=== PATIENT | female | born 1985 | race Caucasian/White ===

== ENCOUNTER 2016-07-26 14:27 | Outpatient (CLI) | payer BC, OTHER ==
[2016-07-26 14:49] LABS: Glucose,Whole Blood 96 mg/dL (75-99)
[2016-07-26 15:07] LABS: Basophils % (A) 0 %; CH 29.2; CHCM 33.4; Eosinophils # (A) 0.2 k/uL (0-0.7); Eosinophils % (A) 1 %; HCT 37.4 % (34.0-46.0); HGB 12.2 gm/dL (11.4-16.0); Luc # (Auto) 0.47; Luc % (Auto) 4; Lymphocytes # (A) 2.1 k/uL (1.0-4.8); Lymphocytes % (A) 16 %; MCH 28.8 pg (25.0-35.0); MCHC 32.8 g/dL (31.0-37.0); MCV 87.8 fL (80.0-100.0); Mean Platelet Volume 7.3; Monocytes # (A) 0.8 k/uL (0-1.0); Monocytes % (A) 6 %; Neutrophils # (A) 9.7 k/uL (1.3-7.7); Neutrophils % (A) 73 %; RBC 4.25 m/uL (3.80-5.40); RDW 14.2 % (11.5-15.5); WBC 13.4 k/uL (3.8-10.6); WBC (Perox) 14.56
[2016-07-26 15:14] LABS: LDH 394 U/L (313-618); Non-African American GFR(MDRD) >60 (>60 ml/min/1.73 sqM); Uric Acid 2.6 mg/dL (3.7-7.4)
[2016-07-26 15:26] LABS: Appearance,Urine Clear (Clear); Bilirubin,Urine Negative (Negative); Glucose,Urine (UA) Negative (Negative); Ketones,Urine Negative (Negative); Leukocyte Esterase,Urine Negative (Negative); Mucus,Urine Rare /hpf; Nitrite,Urine Negative (Negative); PH, Urine 5.5 (5.0-8.0); Particle Count 3139; Protein,Urine Negative (Negative); RBC,Urine <1 /hpf (0-5); Specific Gravity,Urine 1.014 (1.001-1.035); Squamous Epithelial Cell,Urine 4 /hpf (0-4); UA Billing (MACRO vs. MICRO) MICRO; Urobilinogen,Urine <2.0 mg/dL (<2.0); WBC,Urine 1 /hpf (0-5)
== END 2016-07-26 15:34 | disposition home or self-care (01) ==
LOC: FBPOP 14:27
PROVIDERS: ATTEND Obstetrics & Gynecology
DX: J02.9 Acute pharyngitis, unspecified (principal)
CPT/HCPCS: 59025; 81001; 82565; 83615; 84450; 84460; 84520; 84550; 85025; 99215

== ENCOUNTER 2016-07-31 08:00 | Inpatient (IN) | payer BC, OTHER ==
[2016-07-31 16:31] VITALS: BMI 52.1
[2016-07-31] MEDS ORDERED: LACTATED RINGERS 1,000 ML IV ONE (16:33)
[2016-07-31] MEDS ORDERED: CITRIC ACID-SODIUM CITRATE 15 ML CUP PO ONE (16:33)
[2016-07-31] MEDS ORDERED: CLINDAMYCIN 900 MG in DEXTROSE 5% IN WATER 50 ML IVPB STA ×2 (16:36)
[2016-07-31] MEDS ORDERED: LACTATED RINGERS 1,000 ML IV SCH (16:45)
[2016-07-31 16:54] LABS: Basophils % (A) 0 %; CH 29.4; CHCM 34.1; Eosinophils # (A) 0.1 k/uL (0-0.7); Eosinophils % (A) 1 %; HCT 35.9 % (34.0-46.0); HDW 2.83; Luc % (Auto) 2; Lymphocytes # (A) 1.5 k/uL (1.0-4.8); Lymphocytes % (A) 13 %; MCH 28.9 pg (25.0-35.0); MCHC 33.4 g/dL (31.0-37.0); MCV 86.5 fL (80.0-100.0); Mean Platelet Volume 8.1; Monocytes # (A) 0.9 k/uL (0-1.0); Monocytes % (A) 8 %; Neutrophils # (A) 8.6 k/uL (1.3-7.7); Neutrophils % (A) 75 %; RBC 4.15 m/uL (3.80-5.40); RDW 14.5 % (11.5-15.5); WBC 11.4 k/uL (3.8-10.6); WBC (Perox) 12.16
[2016-07-31 16:56] LABS: Glucose,Whole Blood 69 mg/dL (75-99)
[2016-07-31 17:21] LABS: Prothrombin Time 9.9 sec (9.0-12.0)
[2016-07-31 18:51] LABS: Hemoglobin A1C 5.4 % (4.2-6.1)
--- NOTE | 2016-07-31 18:52 | P.HPOB ---
History of Present Illness H&P Date: 07/31/16 Chief Complaint: Intrauterine at 37 weeks: Gestational hypertension Patient is a 30-year-old at 37 weeks gestation was seen in the office and was noted have levator blood pressure. Last week she also had elevated blood pressures labs or studies were negative however due to this finding she is diagnosed with gestational hypertension at as she is term now we'll plan for delivery. She is scheduled previously for a primary low transverse section due to prior clavicle fraction the baby and shoulder dystocia with current gestational diabetes and suspected macrosomia. Risks/benefits/ alternatives were discussed with patient in detail and all questions have been answered for the patient prior to proceeding to the operating room. Precis course has been uneventful but she did have competitions of gestational diabetes. Pertinent labs did include A+ blood type Rh antibody was negative, rubella immune, hepatitis B surface antigen and RPR were both negative. Assessment intrauterine at term and gestational hypertension with gestational diabetes. Plan primary low transverse section with bilateral partial salpingectomy for family planning Past Medical History Past Medical History: GERD/Reflux Additional Past Medical History / Comment(s): ELEV WBC., migraines History of Any Multi-Drug Resistant Organisms: None Reported Past Surgical History: Cholecystectomy Additional Past Surgical History / Comment(s): EGD, COLONOSCOPY. Past Anesthesia/Blood Transfusion Reactions: No Reported Reaction Past Psychological History: No Psychological Hx Reported Smoking Status: Current every day smoker Past Alcohol Use History: None Reported Past Drug Use History: None Reported - Past Family History Mother Family Medical History: Diabetes Mellitus Medications and Allergies Home Medications Medication Instructions Recorded Confirmed Type Multivitamin [Children's 1 tab PO DAILY 05/12/16 07/31/16 History Multivitamins] Allergies Allergy/AdvReac Type Severity Reaction Status Date / Time Penicillins Allergy Rash/Hives Verified 07/26/16 14:40 Sulfa (Sulfonamide Allergy Rash/Hives Verified 07/26/16 14:40 Antibiotics) Exam Osteopathic Statement: *. No significant issues noted on an osteopathic structural exam other than those noted in the History and Physical/Consult. - Vital Signs Vital signs: Vital Signs Temp Pulse Resp BP Pulse Ox 07/31/16 16:10 96.0 F L 128 H 17 127/78 97 Intake and Output 07/31/16 07/31/16 07/31/16 06:59 14:59 22:59 Other: Weight 125.191 kg Patient Weight 08/01/16 06:59 Weight 125.191 kg - OBG Physical Exam Breast: both: normal (no masses) Abdomen: bowel sounds normal, no diffuse tenderness, no bruit present, no guarding noted, no hepatomegaly, no splenomegaly, no mass Vulva: both: normal Vagina: normal moisture, no discharge Cervix: no lesion, no discharge Uterus: normal size, normal contour Adnexa: both: normal Anus/Rectum: normal perianal skin, no rectal mass, no hemorrhoids, heme negative Results Result Diagrams: 07/31/16 16:40 Abnormal Lab Results - Last 24 Hours (Table) 07/31/16 07/31/16 Range/Units 16:40 16:54 WBC 11.4 H (3.8-10.6) k/uL Neutrophils # 8.6 H (1.3-7.7) k/uL POC Glucose (mg/dL) 69 L (75-99) mg/dL
[2016-07-31] MEDS ORDERED: ePHEDrine 50 MG/ML 1 ML AMP ONE (19:11)
[2016-07-31] MEDS ORDERED: OXYTOCIN 10 UNIT/ML 1 ML VIAL IM ONE (19:11)
[2016-07-31] MEDS ORDERED: MORPHINE SULFATE (PF) 0.3 MG/0.3 ML SYR ONE (19:11)
[2016-07-31] MEDS ORDERED: KETOROLAC 30 MG/ML 1 ML VIAL ONE (19:11)
[2016-07-31] MEDS ORDERED: ONDANSETRON 4 MG/2 ML VIAL ONE (19:11)
--- NOTE | 2016-07-31 20:08 | P.OP ---
Date of Procedure: 07/31/16 Preoperative Diagnosis: Intrauterine at 37 weeks: Gestational diabetes: Gestational hypertension: Family planning Postoperative Diagnosis: Same Procedure(s) Performed: Primary low-transverse section with bilateral partial salpingectomy Anesthesia: spinal Surgeon: Jacques Alegria Heavy Equipment Operator #1: Kathryn Bolden Estimated Blood Loss (ml): 600 IV fluids (ml): 1,000 Urine output (ml): 100 Pathology: other (Placenta) Condition: stable Disposition: floor Operative Findings: Male scores of 8 and 9 at one and 5 minutes respectively weight was 7 lbs. 2 oz. Description of Procedure: Patient was taken to the operating room where a spinal anesthetic was found be adequate. She was prepped and draped in the normal sterile fashion and placed in dorsal supine position with leftward tilt. Initially a Pfannenstiel skin incision was made and this incision was then carried through to underlying layer of the fascia was second knife. Fascia was then nicked in the midline and this opening was extended laterally with Mullins scissors. Superior and inferior aspect of this incision were then grasped tented up and bluntly and sharply dissected off the rectus muscles. Rectus muscles were then divided in the midline and sharp dissection through the peritoneum was made. This opening was then extended superiorly and inferiorly with good visualization of both bowel bladder. Bladder blade was then placed and the vesicouterine peritoneum was identified grasped with pickups and entered sharply with Metzenbaum scissors. This opening was then extended across face of the uterus with Metzenbaum scissors and her bladder flap was digitally created. Knife was then used to incise uterus. This opening was then extended bluntly following use of hemostat opening. Once opened head was atraumatically delivered with and interim posterior shoulders were delivered with gentle downward upper traction. Mouth nares were then bulb suctioned umbilical cord was clamped cut usual fashion an nursery personnel was present to assume care. Baby was delivered from right occiput transverse position. Placenta was then delivered intact and Pitocin was added to the IV. Uterus was then exteriorized cleared of clots and debris and closed in 1 layer with 0 Vicryl suture. Once excellent hemostasis was obtained attention was turned fallopian tubes. First the right tube the left tube had a hemostat placed 3 cm from uterine cornu. Window was then created in the mesosalpinx with Bovie cautery and 2 proximal and 2 distal 2-0 silk sutures were placed intervening segment excised, and the tips were cauterized. C no bleeding from the mesosalpinx blood and debris was then suctioned from the posterior cul-de-sac. Uterus was then reinserted into the abdomen and verification of hemostasis was made. Peritoneum was then closed with 0 Vicryl suture fascial layer was closed with 0 Vicryl suture one layer of 3-0 Vicryl was placed in deep subcuticular tissues to reapproximate the skin. Skin was then closed with 3-0 Vicryl on a Seng needle. Sponge, lap, needle counts were all correct 2. Patient was taken to the recovery room in stable and satisfactory condition.
[2016-07-31] MEDS ORDERED: ACETAMINOPHEN TAB 325 MG TAB PO PRN (20:22)
[2016-07-31] MEDS ORDERED: Acetaminophen-Codeine 300-30mg TAB PO PRN ×2 (20:22)
[2016-07-31] MEDS ORDERED: diphenhydrAMINE 50 MG CAP PO PRN (20:22)
[2016-07-31] MEDS ORDERED: METOCLOPRAMIDE 5 MG/ML 2 ML VIAL IVP PRN (20:22)
[2016-07-31] MEDS ORDERED: diphenhydrAMINE 50 MG/ML 1 ML VIAL IVP PRN ×2 (20:22)
[2016-07-31] MEDS ORDERED: diphenhydrAMINE 25 MG CAP PO PRN (20:22)
[2016-07-31] MEDS ORDERED: ZOLPIDEM 5 MG TAB PO PRN (20:22)
[2016-07-31] MEDS: LACTATED RINGERS 1,000 ML IV SCH (22:18)
[2016-07-31] MEDS: OXYTOCIN 30 UNITS/500 ML NS 30 UNIT in SALINE 1 500ML.BAG IV SCH (22:19)
[2016-07-31] MEDS: SENNOSIDES-DOCUSATE SODIUM 1 EACH TAB PO SCH (22:20)
[2016-08-01] MEDS: LACTATED RINGERS 1,000 ML IV SCH ×2 (00:44→20:48)
[2016-08-01] MEDS: OXYTOCIN 30 UNITS/500 ML NS 30 UNIT in SALINE 1 500ML.BAG IV SCH (00:50)
[2016-08-01] MEDS: KETOROLAC 30 MG/ML 1 ML VIAL IVP PRN ×3 (01:35→15:38)
[2016-08-01] MEDS: CLINDAMYCIN 600 MG in DEXTROSE 5% IN WATER 50 ML IVPB SCH ×4 (05:39)
[2016-08-01] MEDS: SENNOSIDES-DOCUSATE SODIUM 1 EACH TAB PO SCH ×2 (07:56→20:53)
[2016-08-01 08:08] LABS: Basophils % (A) 0 %; CH 29.4; CHCM 33.3; Eosinophils # (A) 0.2 k/uL (0-0.7); Eosinophils % (A) 1 %; HCT 35.3 % (34.0-46.0); HDW 2.74; HGB 11.5 gm/dL (11.4-16.0); Luc # (Auto) 0.16; Luc % (Auto) 1; Lymphocytes # (A) 1.9 k/uL (1.0-4.8); Lymphocytes % (A) 17 %; MCHC 32.6 g/dL (31.0-37.0); MCV 88.8 fL (80.0-100.0); Mean Platelet Volume 8.4; Monocytes % (A) 9 %; Neutrophils % (A) 71 %; RBC 3.98 m/uL (3.80-5.40); RDW 14.6 % (11.5-15.5); WBC 11.3 k/uL (3.8-10.6); WBC (Perox) 12.27
--- NOTE | 2016-08-01 08:42 | P.PNOBGPC ---
Subjective - Subjective Principal diagnosis: Postoperative day 1 Interval history: Overall Kamila is doing very well postop day 1. She is involuting, voiding and she is tolerating a diet. She voices no points. All the questions are answered for her. Vital signs are currently stable. She is afebrile. Continue current care. Objective - Vital Signs Latest vital signs: Vital Signs Temp Pulse Resp BP Pulse Ox 08/01/16 08:00 97.8 F 87 17 100/56 08/01/16 04:00 99.3 F 83 18 93/41 97 08/01/16 00:00 98.7 F 88 18 110/69 98 07/31/16 22:02 98.1 F 82 16 110/62 98 07/31/16 21:32 81 16 104/53 98 07/31/16 21:02 84 16 106/56 98 07/31/16 20:47 96.0 F L 80 16 120/62 96 07/31/16 20:32 80 16 105/55 97 07/31/16 20:17 85 16 102/61 97 07/31/16 20:02 95.9 F L 82 16 126/58 98 07/31/16 16:10 96.0 F L 128 H 17 127/78 97 Intake and Output 07/31/16 08/01/16 08/01/16 22:59 06:59 14:59 Intake Total 800 700 Output Total 1300 350 Balance -500 350 Intake: IV 800 Oral 700 Output: Urine 100 350 Uretheral (Mahoney) 350 Emesis 0 Estimated Blood Loss 1200 Other: Voiding Method Indwelling Catheter Indwelling Catheter # Bowel Movements 0 Weight 125.191 kg - Labs Labs: Abnormal Lab Results - Last 24 Hours (Table) 07/31/16 07/31/16 08/01/16 Range/Units 16:40 16:54 07:54 WBC 11.4 H 11.3 H (3.8-10.6) k/uL Neutrophils # 8.6 H 8.0 H (1.3-7.7) k/uL POC Glucose (mg/dL) 69 L (75-99) mg/dL
--- NOTE | 2016-08-01 09:57 | P.PN ---
Progress Note - Text 0730 Anesthesia POD 1. Patient is status post section under spinal anesthesia with intra-thecal preservative free morphine 300 g. Mild pruritus, good post-op analgesia, and headache or other complications.
[2016-08-01 11:53] VITALS: RESP 16
[2016-08-01] MEDS: IBUPROFEN 600 MG TAB PO PRN (20:48)
[2016-08-02] MEDS ORDERED: guaiFENesin 600 MG TABLET.ER PO PRN (02:15)
[2016-08-02] MEDS: IBUPROFEN 600 MG TAB PO PRN (08:22)
[2016-08-02] MEDS: SENNOSIDES-DOCUSATE SODIUM 1 EACH TAB PO SCH (08:22)
[2016-08-02 08:35] VITALS: BP 126/61; PULSE 78; TEMP 97.7
--- NOTE | 2016-08-02 08:44 | P.DS ---
Providers Date of admission: 07/31/16 16:00 Expected date of discharge: 08/02/16 Attending physician: Jacques Alegria Primary care physician: Stated None Hospital Course: Patient is doing very well post op day 2. She is ambulating, voiding and she is tolerating her diet. She voices no complaints. Blood pressures of been fine. Vital signs are stable and afebrile. Heart is regular, lungs are clear, extremities without pain. Abdomen is soft uterus is firm below the umbilicus incision is clean dry and intact and lochia is reported to be light. Prescription for pain relievers has been provided she is aware to have no heavy lifting, limit stairs and driving, and pelvic rest. Should she have any high temperatures, heavy bleeding or severe pain she is to call my office. Otherwise she'll follow up with me in 1 week. She is stable for discharge this time and all questions have been answered for her at this time. Patient Condition at Discharge: Good Plan - Discharge Summary New Discharge Prescriptions: Acetaminophen-Codeine 300-30mg [Tylenol #3] 1 tab PO Q4H PRN #30 tablet PRN Reason: Pain Ibuprofen [Motrin] 600 mg PO Q6HR PRN #30 tab PRN Reason: Pain Discharge Medication List Multivitamin [Children's Multivitamins] 1 tab PO DAILY 05/12/16 [History] Acetaminophen-Codeine 300-30mg [Tylenol #3] 1 tab PO Q4H PRN #30 tablet [Rx] Ibuprofen [Motrin] 600 mg PO Q6HR PRN #30 tab 08/02/16 [Rx] Follow up Appointment(s)/Referral(s): Jacques Alegria DO [Doctor of Osteopathic Medicine] - 1 Week Activity/Diet/Wound Care/Special Instructions: Pelvic rest, no heavy lifting, limit stairs and driving. If any high temperatures, heavy bleeding, or severe pain call my office
== END 2016-08-02 10:30 | disposition home or self-care (01) | DRG 766 ==
LOC: 4FBP 16:00
PROVIDERS: ADMIT Obstetrics & Gynecology; ATTEND Obstetrics & Gynecology
PROC: 0UB70ZZ Excision of Bilateral Fallopian Tubes, Open Approach (ICD-10-PCS; 2016-07-31)
PROC: 10D00Z1 Extraction of Products of Conception, Low, Open Approach (ICD-10-PCS; principal; 2016-07-31 19:21)
DX: O13.4 Gestational [pregnancy-induced] hypertension without significant proteinuria, complicating childbirth (principal); O24.429 Gestational diabetes mellitus in childbirth, unspecified control; F17.200 Nicotine dependence, unspecified, uncomplicated; G43.909 Migraine, unspecified, not intractable, without status migrainosus; O36.63X0 Maternal care for excessive fetal growth, third trimester, not applicable or unspecified; O26.893 Other specified pregnancy related conditions, third trimester; O99.334 Smoking (tobacco) complicating childbirth; O99.62 Diseases of the digestive system complicating childbirth; K21.9 Gastro-esophageal reflux disease without esophagitis; Z37.0 Single live birth; Z3A.37 37 weeks gestation of pregnancy; Z83.3 Family history of diabetes mellitus
CPT/HCPCS: 83036; 85025; 85610; 86850; 86900; 86901; 88302; 88307

== ENCOUNTER → 2016-09-01 | Outpatient (CLI) | payer BC, OTHER ==
--- NOTE | 2016-09-01 09:10 | CT ---
EXAMINATION TYPE: CT abdomen pelvis w con DATE OF EXAM: 09/01/2016 8:18 AM COMPARISON: Prior CT abdomen pelvis 26 May 2015, 12 November 2015 HISTORY: Patient complains of painful masses bilateral to her caesarean section scar. CT DLP: 2128.5 mGycm Automated exposure control for dose reduction was used. TECHNIQUE: Helical acquisition of images was performed from the lung bases through the pelvis. CONTRAST: Performed with Oral Contrast and with IV Contrast, patient injected with 100 mL of Omnipaque 300. FINDINGS: Retroaortic renal vein is noted incidentally. LUNG BASES: No significant abnormality is appreciated. LIVER/GB: Liver shows low attenuation likely due to fatty infiltration. Liver is enlarged. Patient is post cholecystectomy. PANCREAS: Head of pancreas is mildly bulky but stable SPLEEN: No significant abnormality is seen. ADRENALS: No significant abnormality is seen. KIDNEYS: No significant abnormality is seen. RETROPERITONEAL ADENOPATHY: None visualized REPRODUCTIVE ORGANS: No significant abnormality is seen URINARY BLADDER: No significant abnormality is seen. PELVIC ADENOPATHY: None visualized. OSSEOUS STRUCTURES: No significant abnormality is seen. BOWEL: No significant abnormality is seen. OTHER: At the level of the patient's incision there is a small focus of fluid density measuring 3 cm x 1.3 cm x 2.7 cm. Small focus of air may be present. Some inflammatory changes also present to the l eft of midline without significant fluid collection. IMPRESSION: THERE MAY BE A LOCAL SEROMA OR HEMATOMA, DIFFICULT TO EXCLUDE ABSCESS AT THE LEVEL OF PATIENT'S INCIS ION. ULTRASOUND-GUIDED ASPIRATION COULD BE PERFORMED INDICATED. ADDITIONAL FINDINGS ABOVE.
== END | disposition home or self-care (01) ==
LOC: RADCTMAIN 07:25
PROVIDERS: ATTEND Surgery
DX: R10.31 Right lower quadrant pain (principal); R10.32 Left lower quadrant pain
CPT/HCPCS: 74177; Q9967

== ENCOUNTER 2016-10-20 12:08 | Day surgery (SDC) | payer BC, OTHER ==
--- NOTE | 2016-10-20 12:50 | US ---
ULTRASOUND GUIDED FNA PERCUTANEOUS SEROMA DISCONTINUED: CLINICAL HISTORY: Subcutaneous fluid collection COMPARISON: CT scan 09/01/2016 FINDINGS: Preliminary imaging demonstrated no evidence of a fluid collection for fine-needle aspiration. Proced ure discontinued. IMPRESSION: 1. No evidence of fluid collection for fine-needle aspiration..
== END 2016-10-20 12:58 | disposition home or self-care (01) ==
LOC: RADPROMAIN 12:08
PROVIDERS: ATTEND Obstetrics & Gynecology
DX: R68.89 Other general symptoms and signs (principal); Z53.8 Procedure and treatment not carried out for other reasons
CPT/HCPCS: 76536

== ENCOUNTER 2017-03-27 15:46 | Emergency (ER) | payer BC, OTHER ==
[2017-03-27] MEDS ORDERED: CYCLOBENZAPRINE 10MG STARTER 3 TAB BTL PO STA (16:57)
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
--- NOTE | 2017-03-27 18:26 | XR ---
EXAMINATION TYPE: XR lumbar spine 2 or 3V DATE OF EXAM: 03/27/2017 COMPARISON: NONE HISTORY: Back pain TECHNIQUE: 3 views FINDINGS: Vertebra have normal spacing. Sacroiliac joints are intact. There is possible bilateral L5 spondylolysis. There is no spondylolisthesis. IMPRESSION: Possible L5 spondylolysis. No compression fracture.
[2017-03-27 18:55] VITALS: BP 139/67; PULSE 78; RESP 18; TEMP 98.3
== END 2017-03-27 18:54 | disposition home or self-care (01) ==
LOC: EC 15:46
DX: S16.1XXA Strain of muscle, fascia and tendon at neck level, initial encounter (principal); S39.012A Strain of muscle, fascia and tendon of lower back, initial encounter; M47.816 Spondylosis without myelopathy or radiculopathy, lumbar region; F17.200 Nicotine dependence, unspecified, uncomplicated; Z88.0 Allergy status to penicillin; Z88.2 Allergy status to sulfonamides; V43.52XA Car driver injured in collision with other type car in traffic accident, initial encounter; Y92.410 Unspecified street and highway as the place of occurrence of the external cause
CPT/HCPCS: 72100; 72125; 99284

== ENCOUNTER → 2017-06-12 | Outpatient (CLI) | payer BC, OTHER ==
--- NOTE | 2017-06-12 13:49 | US ---
EXAMINATION TYPE: US pelvic complete DATE OF EXAM: 06/12/2017 COMPARISON: NONE CLINICAL HISTORY: R10.84 GENERALIZED ABD PAIN. RLQ pain that moves to LLQ, LMP in April, patient st gary she does not have irregular cycles but has not started for May, TECHNIQUE: TA Date of LMP: Apr, unknown day EXAM MEASUREMENTS: Uterus: 10.1 x 4.4 x 4.2 cm Endometrial Stripe: 0.9 cm Right Ovary: 2.4 x 2.3 x 2.2 cm Left Ovary: 2.9 x 2.4 x 2.4 cm 1. Uterus: Anteverted wnl 2. Endometrium: wnl 3. Right Ovary: wnl 4. Left Ovary: wnl 5. Bilateral Adnexa: wnl 6. Posterior cul-de-sac: wnl IMPRESSION: No distinct abnormality appreciated at this time.
== END | disposition home or self-care (01) ==
LOC: RADUSWWP 12:15
PROVIDERS: ATTEND Family Medicine
DX: R10.84 Generalized abdominal pain (principal); Z88.0 Allergy status to penicillin; Z88.2 Allergy status to sulfonamides
CPT/HCPCS: 76856

== ENCOUNTER 2017-08-08 21:50 | Emergency (ER) | payer BC, OTHER ==
--- NOTE | 2017-08-08 22:48 | ED ---
Chest Pain HPI - General Chief Complaint: Chest Pain Stated Complaint: left breast pain Time Seen by Provider: 08/08/17 22:28 Source: patient Mode of arrival: ambulatory Limitations: no limitations - History of Present Illness Initial Comments: This patient is a 31-year-old woman who presents to be evaluated for left breast pain and tenderness. She states that she initially noticed this while she was at work yesterday a little after noon. She states that her left breast is becomes a tender that she has resorted to putting a Band-Aid over the nipple. She has not noted any other symptoms, including no fever or chills, palpitations, no breast mass, no nipple discharge. MD Complaint: other (Left breast pain/tenderness) Onset/Timin -: days(s) Onset: during rest Pain Location: other (Left breast) Pain Radiation: none Severity: moderate Quality: other (Burning) Consistency: constant Improves With: nothing Worsens With: palpation Treatments Prior to Arrival: none - Related Data Home Medications Medication Instructions Recorded Confirmed Ibuprofen [Motrin] 800 mg PO Q8H PRN 08/08/17 08/08/17 SUMAtriptan SUCCINATE [Imitrex] 50 mg PO DAILY PRN 08/08/17 08/08/17 Topiramate 50 mg PO TID 08/08/17 08/08/17 Previous Rx's Medication Instructions Recorded Clindamycin [Cleocin] 150 mg PO Q6H #28 capsule 08/08/17 Hydrocodone/Acetaminophen [Faison 1 each PO Q6HR PRN #20 tab 08/08/17 5-325] valACYclovir HCL [Valacyclovir] 1,000 mg PO TID #21 tab 08/08/17 Lidocaine Viscous [Xylocaine 5 ml PO Q3HR PRN #100 ml 08/09/17 Viscous 2%] Allergies Allergy/AdvReac Type Severity Reaction Status Date / Time Penicillins Allergy Rash/Hives Verified 08/08/17 22:34 Sulfa (Sulfonamide Allergy Rash/Hives Verified 08/08/17 22:34 Antibiotics) Review of Systems ROS Statement: Those systems with pertinent positive or pertinent negative responses have been documented in the HPI. ROS Other: All systems not noted in ROS Statement are negative. Constitutional: Denies: fever, chills Respiratory: Denies: cough, dyspnea Cardiovascular: Denies: chest pain, palpitations Gastrointestinal: Denies: abdominal pain, nausea, vomiting, diarrhea Genitourinary: Denies: dysuria, hematuria Musculoskeletal: Denies: back pain Skin: Denies: rash Neurological: Denies: headache EKG Findings - EKG Results: EKG: interpreted by TAYLOR LATHAM, sinus rhythm (Rate approximate 91 bpm), normal axis, normal QRS, normal ST/T, no acute changes - MO, Pacemaker, Normal: Normal tracing: normal tracing Past Medical History Past Medical History: GERD/Reflux Additional Past Medical History / Comment(s): ELEV WBC., migraines History of Any Multi-Drug Resistant Organisms: None Reported Past Surgical History: Section, Cholecystectomy, Tubal Ligation Additional Past Surgical History / Comment(s): EGD, COLONOSCOPY. Past Anesthesia/Blood Transfusion Reactions: No Reported Reaction Past Psychological History: No Psychological Hx Reported Smoking Status: Current every day smoker Past Alcohol Use History: None Reported Past Drug Use History: None Reported - Past Family History Mother Family Medical History: Diabetes Mellitus General Exam Limitations: no limitations General appearance: alert, in no apparent distress, obese Head exam: Present: atraumatic, normocephalic Eye exam: Present: normal appearance. Absent: scleral icterus, conjunctival injection Respiratory exam: Present: normal lung sounds bilaterally. Absent: respiratory distress, wheezes, rales, rhonchi, stridor Cardiovascular Exam: Present: regular rate, normal rhythm, normal heart sounds, other (Exam of the patient's left breast reveals no axillary lymphadenopathy or tenderness. The patient does have slightly fibrocystic breasts, however there is no discrete palpable mass which is tender or enlarged. The patient does have moderate tenderness even to exam of the skin of the breast, and there is some mild erythema.). Absent: systolic murmur, diastolic murmur, rubs, gallop GI/Abdominal exam: Present: soft. Absent: distended, tenderness, guarding, rebound Back exam: Present: normal inspection. Absent: CVA tenderness (R), CVA tenderness (L) Neurological exam: Present: alert Skin exam: Present: warm, dry, intact, normal color. Absent: rash Course Vital Signs 08/08/17 08/08/17 21:54 23:55 Temperature 98.8 F 97.8 F Pulse Rate 116 H 70 Respiratory 20 18 Rate Blood Pressure 158/92 117/71 O2 Sat by Pulse 99 99 Oximetry Chest Pain MDM - MDM This patient is a 31-year-old woman who presents with left sided mastalgia. She is not recently . I do not find a discrete abscess. At this point the differential includes early abscess, also consider early zoster infection. I discussed appropriate follow-up and further care, and all questions answered. Disposition Clinical Impression: Mastalgia Disposition: HOME SELF-CARE Condition: Good Instructions: Mastitis (ED) Prescriptions: Clindamycin [Cleocin] 150 mg PO Q6H #28 capsule Hydrocodone/Acetaminophen [Faison 5-325] 1 each PO Q6HR PRN #20 tab PRN Reason: Pain Lidocaine Viscous [Xylocaine Viscous 2%] 5 ml PO Q3HR PRN #100 ml PRN Reason: Sore Throat valACYclovir HCL [Valacyclovir] 1,000 mg PO TID #21 tab Referrals: Leopoldo Gramajo Jr, DO [Primary Care Provider] - 1-2 days
[2017-08-08] MEDS ORDERED: LIDOCAINE VISCOUS 2% 15 ML CUP MUCOUS MEM STA (23:38)
[2017-08-08 23:56] VITALS: BP 117/71; PULSE 70; RESP 18; TEMP 97.8
== END 2017-08-09 00:17 | disposition home or self-care (01) ==
LOC: EC 21:50
DX: N64.4 Mastodynia (principal); N60.12 Diffuse cystic mastopathy of left breast; N60.11 Diffuse cystic mastopathy of right breast; L53.9 Erythematous condition, unspecified; E66.9 Obesity, unspecified; F17.200 Nicotine dependence, unspecified, uncomplicated; Z79.899 Other long term (current) drug therapy; Z88.0 Allergy status to penicillin; Z88.2 Allergy status to sulfonamides; Z86.69 Personal history of other diseases of the nervous system and sense organs; Z68.42 Body mass index [BMI] 45.0-49.9, adult
CPT/HCPCS: 93005; 99284

== ENCOUNTER → 2018-06-26 | Outpatient (CLI) | payer BC ==
--- NOTE | 2018-06-26 19:14 | CONS ---
CONSULTATION DATE OF SERVICE: 06/26/2018 A 32-year-old lady who has [facility] for snoring and excessive daytime sleepiness. HISTORY OF PRESENT ILLNESS/SLEEP-WAKE EVALUATION: SLEEP SCHEDULE: Patient usual sleep schedule basically 7 days a week from 1030 11 p.m. until 7:30/8 a.m. FALLING ASLEEP: Usually no problems with falling asleep. DURING SLEEP: She sleeps on the stomach position all on the side. She snores and has been told about episodes of stopped breathing during the sleep. Positive history of sleep talking and restless leg symptoms. DURING THE DAY/SLEEP WAKE EVALUATION: In the morning, patient wakes up tired, has difficulties paying attention. Has problems with memory, concentration, irritability, depression and anxiety. [place] Sleepiness Scale significantly increased to 14. PAST MEDICAL HISTORY: Positive for migraines. PAST SURGICAL HISTORY: Hernia repair, , cholecystectomy. MEDICATION: , Ibuprofen. SOCIAL HISTORY: Positive for smoking about half pack a day for 10 years. Alcohol consumption occasional. FAMILY HISTORY: Hypertension, snoring, headaches, diabetes, thyroid problems. REVIEW OF SYSTEMS: Occasional awakenings from sleep, sleepiness during the day. PHYSICAL EXAM: lady without distress. BP 150/80, HR 79, RR 18, height 5 foot 2 inches, weight 275.4 pounds, body mass index 50.2, temperature 97.8, oxygen saturation at room air 98%. Oropharynx: Extremely low position of soft palate wide pillars. Tonsils present. ABDOMEN: Obese. Neck Supple, no JVD. Thyroid is not palpable. LUNGS Clear to percussion and to auscultation. Good air exchange. No wheezing or rhonchi. HEART S1, S2 regular. No murmurs, gallops, or rubs. ABDOMEN: Obese. Soft and nontender. Bowel sounds are present. No organomegaly appreciated. EXTREMITIES No clubbing or cyanosis. [employer]IVE Awake, alert, and oriented X3. Cranial nerves 2 to 7 intact. There is no fasciculation or atrophy. noted. No focal deficits observed. IMPRESSION: 1. Snoring, witnessed episodes of stopped breathing during the sleep. Small oropharyngeal air space, wide neck 16.5 inches in circumference, sleepiness. [place] Sleepiness Scale increased to 14. Obstructive sleep apnea-hypopnea syndrome. 2. Obesity, body mass index 50.2. 3. Migraines. 4. Hypertension in the office today. 5. Status post hernia repair. 6. Status post . 7. Status post cholecystectomy. PLAN: 1. Polysomnography for evaluation of patient's breathing during sleep. 2. CPAP/BiPAP titration if sleep study confirms obstructive sleep apnea-hypopnea syndrome. 3. Preferable position during sleep on the side. 4. No driving if patient feels any sleepiness. 5. I will see patient for follow up visit to explain results of testing and following plan. Thank you very much for referring this patient for consultation. Sincerely, Joshua Cortez MD, PhD, FAASM Diplomat of [employer] [place] [employer] Radiographic Technologist of [facility] [place] MMODL / ISAACN: [id number] /
== END ==
LOC: SLEEP 14:16
PROVIDERS: ATTEND Internal Medicine
DX: G47.33 Obstructive sleep apnea (adult) (pediatric) (principal); E66.9 Obesity, unspecified; G43.909 Migraine, unspecified, not intractable, without status migrainosus; I10 Essential (primary) hypertension; F17.200 Nicotine dependence, unspecified, uncomplicated; Z68.43 Body mass index [BMI] 50.0-59.9, adult; Z98.890 Other specified postprocedural states; Z90.49 Acquired absence of other specified parts of digestive tract; Z99.89 Dependence on other enabling machines and devices; Z79.1 Long term (current) use of non-steroidal anti-inflammatories (NSAID)
CPT/HCPCS: 99211

== ENCOUNTER → 2020-05-28 | Outpatient (CLI) | payer BC | END | disposition home or self-care (01) | LOC: LABWHC1 14:49 | PROVIDERS: ATTEND Physician Assistant | DX: R05 Cough (principal) | CPT/HCPCS: 87502; U0003; C9803 ==

== ENCOUNTER → 2021-03-24 | Outpatient (CLI) | payer BC ==
[2021-03-24 13:42] VITALS: BP 122/76; PULSE 93; TEMP 98.4; BMI 55.0
[2021-03-24 15:08] LABS: HCT 39.9 % (34.0-46.0); HGB 13.4 gm/dL (11.4-16.0); MCH 29.5 pg (25.0-35.0); MCHC 33.5 g/dL (31.0-37.0); MCV 88.1 fL (80.0-100.0); Mean Platelet Volume 7.6; Platelet Count 332 k/uL (150-450); RBC 4.52 m/uL (3.80-5.40); RDW 13.8 % (11.5-15.5); WBC 11.1 k/uL (3.8-10.6)
--- NOTE | 2021-03-24 16:43 | P.HPBAR ---
Bariatric H&P - History & Physicial H&P Date: 03/24/21 History & Physicial: Visit/CC: initial clinic visit Patient initial contact: Initial weight: Initial weight in pounds: Height: 5 ft 1 in Initial BMI: Last weight: Current weight: 131.995 kg Current weight in pounds: 291.00 Current BMI: 55.0 [place] body weight (based on NIH guidelines): 47.627 kg Excess body weight loss: The patient is a 35 year-old F who presents for Bariatric Assessment. Patient here today for new bariatric assessment. Patient describes chronic obesity. Current BMI 55. Patient suffers from hypertension, sleep apnea, arthritis of both hips, migraines, depression. Patient has history of chronic leukocytosis. The patient does smoke 1 pack of cigarettes every 3-4 days. History of GERD symptoms in the past but that has resolved. Abdominal surgeries include laparoscopic cholecystectomy, laparoscopic abdominal wall hernia repair with mesh, . No history of DVT or dysphagia. Review of Systems The patient denies any acute changes in vision or hearing, no dysphagia or odynophagia, no chest pain or shortness of breath, no dysuria or hematuria, no headache, no runny nose, no rectal bleeding or melena, no unexplained weight loss Past Medical History Past Medical History: GERD/Reflux Additional Past Medical History / Comment(s): ELEV WBC., migraines History of Any Multi-Drug Resistant Organisms: None Reported Past Surgical History: Section, Cholecystectomy, Tubal Ligation Additional Past Surgical History / Comment(s): EGD, COLONOSCOPY. Past Anesthesia/Blood Transfusion Reactions: No Reported Reaction Smoking Status: Current every day smoker - Past Family History Mother Family Medical History: Diabetes Mellitus Surgical - Exam Vital Signs Temp Pulse BP 98.4 F 93 122/76 03/24/21 13:21 03/24/21 13:21 03/24/21 13:21 Physical exam: General: Well-developed, well-nourished HEENT: Normocephalic, sclerae nonicteric Abdomen: Nontender, nondistended Extremities: No edema Neuro: Alert and oriented Results - Labs 03/24/21 14:24 Abnormal Lab Results - Last 24 Hours (Table) 03/24/21 Range/Units 14:24 WBC 11.1 H (3.8-10.6) k/uL Bariatric Assessment & Plan (1) Morbid obesity with BMI of 50.0-59.9, adult Narrative/Plan: 35-year-old male with morbid obesity and associated comorbidities. Patient interested in sleeve gastrectomy. Risks and benefits of the procedure along with the alternative surgeries reviewed in detail. Anticipated weight loss also discussed in detail. Discussed with patient that smoking cessation will be required. She will also require preoperative EGD. This will be arranged. Status: Acute Bariatric Checklist Checklist: Plan: Checklist: EGD: 1. Hiatal hernia: 2. H. Pylori: HgbA1c: Vitamin D: Smoking: Current every day smoker Primary care physician referral: Dr. Morris Psychiatry clearance: Cardiology clearance: Sleep study: Diet journal: VTE risk score: VTE risk level: Rehab needs at discharge:
[2021-03-24 23:24] LABS: Hemoglobin A1C 5.5 % (4.0-6.0)
[2021-03-25 04:10] LABS: Albumin 4.6 g/dL (3.80-4.90); Anion Gap 8.4 mmol/L (4.00-12.00); BUN/Creat Ratio 12.22 Ratio (12.00-20.00); Calcium 9.5 mg/dL (8.7-10.3); Carbon Dioxide 24.6 mmol/L (21.6-31.8); Globulin 2.3 g/dL (1.6-3.3); Non-African American GFR(CKD) 82.8 (60.0-200.0); Potassium 4.1 mmol/L (3.5-5.5); Total Bilirubin 0.3 mg/dL (0.3-1.2); Total Protein 6.9 g/dL (6.2-8.2)
[2021-03-25 04:18] LABS: Folate, Serum 7.9 ng/mL
== END ==
LOC: BARWHC3 13:03
PROVIDERS: ATTEND Surgery
DX: E66.01 Morbid (severe) obesity due to excess calories (principal); I10 Essential (primary) hypertension; F32.9 Major depressive disorder, single episode, unspecified; M16.0 Bilateral primary osteoarthritis of hip; F17.210 Nicotine dependence, cigarettes, uncomplicated; Z68.43 Body mass index [BMI] 50.0-59.9, adult; Z88.0 Allergy status to penicillin; Z88.2 Allergy status to sulfonamides
CPT/HCPCS: 80053; 82306; 82607; 82746; 83036; 83540; 84425; 85027; 93005; 99211

== ENCOUNTER 2021-05-24 10:27 | Day surgery (SDC) | payer BC ==
[2021-05-19 15:55] VITALS: BMI 53.0
[~2021-05-24 10:27] MED LIST: LACTATED RINGERS 1,000 ML IV SCH
[2021-05-24 10:47] VITALS: TEMP 97.8
[2021-05-24] MEDS ORDERED: LACTATED RINGERS 1,000 ML IV ONE (10:48)
[2021-05-24] MEDS ORDERED: LIDOCAINE 1% INJ 10MG/ML (20 ML MDV) ONE (12:28)
[2021-05-24] MEDS ORDERED: fentaNYL (PF) 50 MCG/ML 2 ML AMP ONE (12:28)
[2021-05-24] MEDS ORDERED: MIDAZOLAM 2 MG/2 ML VIAL ONE (12:28)
[2021-05-24] MEDS ORDERED: PROPOFOL 10 MG/ML 20 ML VIAL IV ONE (12:28)
--- NOTE | 2021-05-24 12:35 | P.GSHP ---
History of Present Illness H&P Date: 05/24/21 Chief Complaint: GERD Patient here today for upper endoscopy. History of mild reflux. Evaluated for bariatric surgery. No abdominal pain. Past Medical History Past Medical History: Hypertension Additional Past Medical History / Comment(s): ., migraines, BARIATRIC EVAL. NOT TAKING MEDS FOR HTN AT THIS TIME History of Any Multi-Drug Resistant Organisms: None Reported Past Surgical History: Section, Cholecystectomy, Hernia Repair, Tubal Ligation Additional Past Surgical History / Comment(s): EGD, COLONOSCOPY. Past Anesthesia/Blood Transfusion Reactions: No Reported Reaction Smoking Status: Current every day smoker - Past Family History Mother Family Medical History: Diabetes Mellitus Medications and Allergies Home Medications Medication Instructions Recorded Confirmed Type Ergocalciferol [Vitamin D2 (1250 50,000 unit PO WEEKLY 03/31/21 05/24/21 History Mcg = 84123 Iu)] Ibuprofen [Motrin] 800 mg PO Q8H 05/24/21 05/24/21 History Venlafaxine HCl [Effexor] 50 mg PO BID 05/24/21 05/24/21 History Allergies Allergy/AdvReac Type Severity Reaction Status Date / Time Penicillins Allergy Rash/Hives Verified 05/19/21 15:44 Sulfa (Sulfonamide Allergy Rash/Hives Verified 05/19/21 15:44 Antibiotics) topiramate [From Topamax] AdvReac Nausea Verified 05/19/21 15:44 Surgical - Exam Vital Signs Temp Pulse Resp BP Pulse Ox 97.8 F 78 18 180/91 98 05/24/21 10:46 05/24/21 10:46 05/24/21 10:46 05/24/21 10:46 05/24/21 10:46 Physical exam: General: Well-developed, well-nourished HEENT: Normocephalic, sclerae nonicteric Abdomen: Nontender, nondistended Extremities: No edema Neuro: Alert and oriented Assessment and Plan (1) GERD (gastroesophageal reflux disease) Narrative/Plan: Will proceed with upper endoscopy Current Visit: Yes Status: Acute Code(s): K21.9 - GASTRO-ESOPHAGEAL REFLUX DISEASE WITHOUT ESOPHAGITIS SNOMED Code(s): 123521014
--- NOTE | 2021-05-24 12:43 | P.PCN ---
Date of Procedure: 05/24/21 Procedure(s) Performed: Preoperative Dx: GERD, presurgical Postoperative Dx: Gastritis with small erosions Procedure: EGD with Bx Anesthesia: Sedation Endoscopist: Dr. Quevedo Specimens: Antrum Endoscopic Procedure: The patient was on the endoscopy table in the left decubitus position. The Olympus gastroscope was inserted into the oropharynx and passed under direct visualization to the region of the third portion of the duodenum. From that point the scope was slowly withdrawn inspecting all surfaces carefully. There were no neoplastic inflammatory or polypoid lesions throughout the duodenum. The pylorus was widely patent. The stomach was carefully inspected. There was gastritis with a few small erosions present. A biopsy of the antrum took place to rule out H. pylori. Retroflexion revealed a normal hiatus. The esophagus was then carefully examined. There were no neoplastic inflammatory or polypoid lesions throughout the visualized esophagus. The patient was then taken to the recovery room in stable condition per anesthesia guidelines. Recommendations: Resume diet. Await biopsy results. Begin antiacids. Follow- up bariatric center.
[2021-05-24 13:14] VITALS: BP 130/83; PULSE 80; RESP 18
== END 2021-05-24 13:39 | disposition home or self-care (01) ==
LOC: ORWHC2ENDO 10:27
PROVIDERS: ATTEND Surgery
DX: K29.50 Unspecified chronic gastritis without bleeding (principal); K25.9 Gastric ulcer, unspecified as acute or chronic, without hemorrhage or perforation; K21.9 Gastro-esophageal reflux disease without esophagitis; I10 Essential (primary) hypertension; G43.909 Migraine, unspecified, not intractable, without status migrainosus; G47.33 Obstructive sleep apnea (adult) (pediatric); E66.01 Morbid (severe) obesity due to excess calories; Z68.43 Body mass index [BMI] 50.0-59.9, adult; F17.200 Nicotine dependence, unspecified, uncomplicated; Z98.891 History of uterine scar from previous surgery; Z90.49 Acquired absence of other specified parts of digestive tract; Z98.51 Tubal ligation status; Z98.890 Other specified postprocedural states; Z83.3 Family history of diabetes mellitus; Z79.1 Long term (current) use of non-steroidal anti-inflammatories (NSAID); Z79.899 Other long term (current) drug therapy; Z88.0 Allergy status to penicillin; Z88.2 Allergy status to sulfonamides; Z88.8 Allergy status to other drugs, medicaments and biological substances
CPT/HCPCS: 88305; 84703; 43239; J2250; J2001; J3010; J2704

== ENCOUNTER → 2021-06-07 | Outpatient (CLI) | payer BC ==
[2021-06-07 16:37] VITALS: BP 155/88; PULSE 102; RESP 18; TEMP 98.3; BMI 55.5
--- NOTE | 2021-06-07 17:22 | P.BASOAP ---
Subjective Progress Note Date: 06/07/21 Principal diagnosis: Morbid obesity patient returns after recent EGD. Remains interested in sleeve gastrectomy. EGD showed gastritis with small erosions. Prescription for omeprazole was provided. She has not picked up her prescription. Patient still smoking a few cigarettes per day. Patient with comorbidities including hypertension sleep apnea arthritis migraines depression.BMI 55. Objective - Vital Signs Vital signs: Vital Signs Temp 98.3 F 06/07/21 16:34 Pulse 102 H 06/07/21 16:34 Resp 18 06/07/21 16:34 BP 155/88 06/07/21 16:34 Pulse Ox Intake & Output 06/06/21 06/07/21 06/07/21 18:59 06:59 18:59 Weight 133.265 kg - Exam Abdomen: Soft, nontender, nondistended Assessment/Plan (1) Morbid obesity with BMI of 50.0-59.9, adult Narrative/Plan: 35-year-old female remains interested in sleeve gastrectomy. Surgical consent form reviewed in detail. All questions answered. Patient still smoking unfortunately. We'll have patient return in 1 month after discontinuation of tobacco. Will check urine nicotine at that time. We'll schedule sleeve gastrectomy following that. The risks of bleeding, infection, stenosis, stricture, leak, abscess, fistula formation, peritonitis, poor weight loss, reflux, vomiting, conversion to an open procedure, aborting sleeve gastrectomy, CA, PE, DVT, and were discussed. The patient understands and wishes to proceed. Plan: Date: 06/07/21 Initial Weight: Initial BMI: Current Weight: 133.265 kg Current BMI: 55.5 Type of Surgery: Total Volume in Band: Previous Volume: Volume Removed: Volume Added: Band Size:
== END ==
LOC: BARWHC3 15:27
PROVIDERS: ATTEND Surgery
DX: E66.01 Morbid (severe) obesity due to excess calories (principal); F17.210 Nicotine dependence, cigarettes, uncomplicated; I10 Essential (primary) hypertension; F32.A Depression, unspecified; G43.909 Migraine, unspecified, not intractable, without status migrainosus; Z68.43 Body mass index [BMI] 50.0-59.9, adult; Z88.0 Allergy status to penicillin; Z88.2 Allergy status to sulfonamides
CPT/HCPCS: 99211

== ENCOUNTER → 2021-08-22 | Outpatient (CLI) | payer BC ==
[2021-08-22 11:11] VITALS: BMI 55.9
== END ==
LOC: BARWHC3 08:38
PROVIDERS: ATTEND Surgery
DX: E66.01 Morbid (severe) obesity due to excess calories (principal); Z71.3 Dietary counseling and surveillance; F17.200 Nicotine dependence, unspecified, uncomplicated; Z88.0 Allergy status to penicillin; Z88.2 Allergy status to sulfonamides; Z88.8 Allergy status to other drugs, medicaments and biological substances; Z68.43 Body mass index [BMI] 50.0-59.9, adult
CPT/HCPCS: 97804

== ENCOUNTER → 2021-11-08 | Outpatient (CLI) | payer BC ==
[2021-11-08 14:14] LABS: Basophils # (A) 0.07 X 10*3/uL (0.00-0.10); Basophils % (A) 0.6 %; Eosinophils % (A) 1.8 %; HCT 40.9 % (37.2-46.3); Immature Grans, Automated 0.3 %; Lymphocytes # (A) 2.52 X 10*3/uL (0.90-5.00); Lymphocytes % (A) 23.2 %; MCH 27.1 pg (27.0-32.0); MCHC 31.8 g/dL (32.0-37.0); MCV 85.2 fL (80.0-97.0); Mean Platelet Volume 10.2 fL (9.5-12.2); Monocytes # (A) 0.76 X 10*3/uL (0.20-1.00); NRBC Per 100 WBC 0 /100 WBCS (0.0-0.0); Neutrophils % (A) 67.1 %; Platelet Count 328 X 10*3/uL (140-440); RDW 13.7 % (11.5-14.5); WBC 10.88 X 10*3/uL (4.50-10.00)
[2021-11-08 14:39] LABS: African American GFR (CKD) 110.7 (60.0-200.0); Albumin 4.3 g/dL (3.8-4.9); Albumin/Globulin Ratio 1.54 (1.60-3.17); Anion Gap 10.9 mmol/L (10.00-18.00); Calcium 9.3 mg/dL (8.7-10.3); Carbon Dioxide 25.1 mmol/L (20.0-27.5); Globulin 2.8 g/dL (1.6-3.3); Non-African American GFR(CKD) 95.5 (60.0-200.0); Potassium 4.8 mmol/L (3.5-5.5); Total Bilirubin 0.3 mg/dL (0.30-1.20); Total Protein 7.1 g/dL (6.2-8.2)
== END | disposition home or self-care (01) ==
LOC: LABPAT 08:42
PROVIDERS: ATTEND Surgery
DX: Z01.812 Encounter for preprocedural laboratory examination (principal)
CPT/HCPCS: 36415; 80053; 85025

== ENCOUNTER → 2021-11-18 | Outpatient (CLI) | payer BC ==
[2021-11-18 11:10] VITALS: BP 130/86; PULSE 112; TEMP 98.7; BMI 55.3
== END ==
LOC: BARWHC3 10:34
PROVIDERS: ATTEND Surgery
DX: Z09 Encounter for follow-up examination after completed treatment for conditions other than malignant neoplasm (principal); Z98.84 Bariatric surgery status; Z88.0 Allergy status to penicillin; Z88.2 Allergy status to sulfonamides; Z88.8 Allergy status to other drugs, medicaments and biological substances
CPT/HCPCS: 99211

== ENCOUNTER → 2021-11-24 | Outpatient (CLI) | payer BC ==
[2021-11-24 13:09] VITALS: BP 112/78; PULSE 113; TEMP 98
--- NOTE | 2021-11-24 13:11 | P.BASOAP ---
Subjective Progress Note Date: 11/24/21 Principal diagnosis: Morbid obesity Patient returns after recent sleeve gastrectomy last week. Doing well at this time. Complaining of mild discomfort at the incision sites. She is having some itching at each of the incision sites as well. No fevers. Tolerating liquids with approximate 16 ounces per day. Good protein intake. Denies heartburn. She has had some loose stools although that's improving. She has lost 10 pounds since her last visit. Objective - Vital Signs Vital signs: Vital Signs Temp 98 F 11/24/21 13:06 Pulse 113 H 11/24/21 13:06 Resp BP 112/78 11/24/21 13:06 Pulse Ox Intake & Output 11/23/21 11/24/21 11/24/21 18:59 06:59 18:59 Weight 128.367 kg - Exam Abdomen: Soft, nondistended, incisions with mild induration and erythema around each site consistent with ALLERGIC rash, minimal tenderness Assessment/Plan (1) Morbid obesity with BMI of 50.0-59.9, adult Narrative/Plan: 35-year-old female doing well after sleeve gastrectomy. Continue liquid diet. Gradually resume normal activities. Continue antiacid therapy. We'll start to use oral ventral and steroid cream on the incision sites. Return visit 2-3 weeks. Plan: Date: 11/24/21 Initial Weight: Initial BMI: Current Weight: 128.367 kg Current BMI: 0.5 Type of Surgery: Total Volume in Band: Previous Volume: Volume Removed: Volume Added: Band Size:
== END ==
LOC: BARWHC3 12:44
PROVIDERS: ATTEND Surgery
DX: E66.01 Morbid (severe) obesity due to excess calories (principal); Z68.43 Body mass index [BMI] 50.0-59.9, adult; Z98.84 Bariatric surgery status; Z88.0 Allergy status to penicillin; Z88.2 Allergy status to sulfonamides; Z88.8 Allergy status to other drugs, medicaments and biological substances; F17.200 Nicotine dependence, unspecified, uncomplicated
CPT/HCPCS: 99211

== ENCOUNTER → 2021-12-20 | Outpatient (CLI) | payer BC, OTHER ==
[2021-12-20 11:18] VITALS: BP 122/87; PULSE 78; RESP 16; TEMP 98.3; BMI 50.8
--- NOTE | 2021-12-20 11:36 | P.BASOAP ---
Subjective Progress Note Date: 12/20/21 Principal diagnosis: Morbid obesity Patient doing well today. She is 5 weeks post sleeve gastrectomy. The itching and rash around her incision sites resolved after the use of topical steroid cream. She has some nausea but no vomiting. She has lost 14 pounds since her last visit. She is back to work. Denies heartburn. Taking omeprazole daily. Objective - Vital Signs Vital signs: Vital Signs Temp 98.3 F 12/20/21 11:13 Pulse 78 12/20/21 11:13 Resp 16 12/20/21 11:13 BP 122/87 12/20/21 11:13 Pulse Ox FiO2 Intake & Output 12/19/21 12/20/21 12/20/21 18:59 06:59 18:59 Weight 122.016 kg - Exam Abdomen: Soft, nondistended, incisions clean and dry Assessment/Plan (1) Morbid obesity with BMI of 50.0-59.9, adult Narrative/Plan: Patient doing well today. Continue gradual dietary advancement. Increase exercise at this time. Check one month labs. Continue antiacids. Follow up one month. Plan: Date: 12/20/21 Initial Weight: 134.263 kg Initial BMI: 55.9 Current Weight: 122.016 kg Current BMI: 50.8 Type of Surgery: Vertical Sleeve Gastrectomy Total Volume in Band: Previous Volume: Volume Removed: Volume Added: Band Size:
[2021-12-20 18:34] LABS: HCT 43.2 % (37.2-46.3); HGB 13.2 g/dL (12.0-15.0); MCH 26.8 pg (27.0-32.0); MCHC 30.6 g/dL (32.0-37.0); MCV 87.6 fL (80.0-97.0); NRBC Per 100 WBC 0 /100 WBCS (0.0-0.0); Platelet Count 247 X 10*3/uL (140-440); RBC 4.93 X 10*6/uL (4.10-5.20); RDW 14.9 % (11.5-14.5); WBC 9.43 X 10*3/uL (4.50-10.00)
[2021-12-20 22:13] LABS: ALT 21 U/L (8-44); AST 17 U/L (13-35); African American GFR (CKD) 118.5 (60.0-200.0); Albumin 4.2 g/dL (3.8-4.9); Albumin/Globulin Ratio 1.75 (1.60-3.17); Alkaline Phosphatase 80 U/L (41-126); BUN/Creat Ratio 14.49 Ratio (12.00-20.00); Blood Urea Nitrogen 10.9 mg/dL (9.0-27.0); Calcium 9.5 mg/dL (8.7-10.3); Carbon Dioxide 25.2 mmol/L (20.0-27.5); Chloride 106 mmol/L (96-109); Globulin 2.4 g/dL (1.6-3.3); Glucose 82 mg/dL (70-110); Iron 31 ug/dL (50-170); Non-African American GFR(CKD) 102.2 (60.0-200.0); Potassium 4.4 mmol/L (3.5-5.5); Sodium 141 mmol/L (135-145); Total Bilirubin <0.15 mg/dL (0.30-1.20); Total Protein 6.6 g/dL (6.2-8.2)
== END ==
LOC: BARWHC3 10:58
PROVIDERS: ATTEND Surgery
DX: E66.01 Morbid (severe) obesity due to excess calories (principal); Z71.3 Dietary counseling and surveillance; Z98.84 Bariatric surgery status; F17.200 Nicotine dependence, unspecified, uncomplicated; Z68.43 Body mass index [BMI] 50.0-59.9, adult; Z88.0 Allergy status to penicillin; Z88.2 Allergy status to sulfonamides; Z88.8 Allergy status to other drugs, medicaments and biological substances
CPT/HCPCS: 80053; 82306; 82607; 82746; 83540; 84425; 85027; 97803; 99211

== ENCOUNTER → 2022-01-17 | Outpatient (CLI) | payer OTHER ==
[2022-01-17 13:15] VITALS: BP 141/81; PULSE 75; RESP 16; TEMP 98; BMI 48.2
--- NOTE | 2022-01-17 14:02 | P.BASOAP ---
Subjective Progress Note Date: 01/17/22 Principal diagnosis: Morbid obesity Patient returns for reevaluation. Last seen 12/20. Had 1 month labs drawn. Iron was low at 31 and vitamin D was low at 20. She only recently started taking her vitamin D. States that she takes her children's daily vitamins rather than adult dosed vitamins. No rectal bleeding or melena. No change in bowel habits. She has lost 14 pounds since last visit. Only has issues that she swallows too large of an amount at one time. No vomiting. No heartburn. Remains on antiacids. Objective - Vital Signs Vital signs: Vital Signs Temp 98 F 01/17/22 13:12 Pulse 75 01/17/22 13:12 Resp 16 01/17/22 13:12 BP 141/81 01/17/22 13:12 Pulse Ox FiO2 Intake & Output 01/16/22 01/17/22 01/17/22 18:59 06:59 18:59 Weight 115.666 kg - Exam Abdomen: Soft, nontender, nondistended Assessment/Plan (1) Morbid obesity with BMI of 50.0-59.9, adult Narrative/Plan: Patient doing well postoperative. We'll begin iron and vitamin D supplementation at this time. Switch over to adult MVI. Continue antiacid therapy. Recheck 4-6 weeks. Check three-month labs at that time. Plan: Date: 01/17/22 Initial Weight: 134.263 kg Initial BMI: 55.9 Current Weight: 115.666 kg Current BMI: 48.2 Type of Surgery: Vertical Sleeve Gastrectomy Total Volume in Band: Previous Volume: Volume Removed: Volume Added: Band Size:
== END ==
LOC: BARWHC3 12:49
PROVIDERS: ATTEND Surgery
DX: E66.01 Morbid (severe) obesity due to excess calories (principal); Z68.41 Body mass index [BMI] 40.0-44.9, adult; Z88.0 Allergy status to penicillin; Z88.2 Allergy status to sulfonamides; Z88.8 Allergy status to other drugs, medicaments and biological substances; F17.200 Nicotine dependence, unspecified, uncomplicated
CPT/HCPCS: 99211

== ENCOUNTER 2022-07-12 01:00 | Emergency (ER) | payer BC, OTHER ==
--- NOTE | 2022-07-12 01:46 | XR ---
EXAMINATION TYPE: XR chest 2V DATE OF EXAM: 07/12/2022 COMPARISON: 04/25/2014 HISTORY: Short of breath TECHNIQUE: FINDINGS: Heart and mediastinum are normal. Lungs are clear of infiltrate. No heart failure. There ar e no hilar masses. There is small linear density left lower lobe. IMPRESSION: There is mild subsegmental atelectasis left lower lobe which is new compared to old exam. Normal heart.
[2022-07-12 02:26] LABS: Basophils # (A) 0.1 k/uL (0-0.2); Basophils % (A) 1 %; Eosinophils # (A) 0.2 k/uL (0-0.7); Eosinophils % (A) 1 %; HGB 12.9 gm/dL (11.4-16.0); Lymphocytes # (A) 3.3 k/uL (1.0-4.8); Lymphocytes % (A) 18 %; MCH 29.9 pg (25.0-35.0); Mean Platelet Volume 8.7; Monocytes # (A) 0.9 k/uL (0-1.0); Monocytes % (A) 5 %; Neutrophils # (A) 13.9 k/uL (1.3-7.7); Neutrophils % (A) 74 %; Platelet Count 271 k/uL (150-450); RBC 4.32 m/uL (3.80-5.40); RDW 13.1 % (11.5-15.5); WBC 18.7 k/uL (3.8-10.6)
[2022-07-12 02:39] LABS: ALT 12 U/L (4-34); AST 18 U/L (14-36); African American GFR (CKD) >90 (>60 ml/min/1.73 sqM); Albumin 3.8 g/dL (3.5-5.0); Alkaline Phosphatase 75 U/L (38-126); Anion Gap 5 mmol/L; Blood Urea Nitrogen 12 mg/dL (7-17); Calcium 8.7 mg/dL (8.4-10.2); Carbon Dioxide 22 mmol/L (22-30); Chloride 110 mmol/L (98-107); Glucose 82 mg/dL (74-99); Magnesium 2.1 mg/dL (1.6-2.3); Non-African American GFR(CKD) >90 (>60 ml/min/1.73 sqM); Potassium 3.9 mmol/L (3.5-5.1); Sodium 137 mmol/L (137-145); Total Bilirubin 0.3 mg/dL (0.2-1.3); Total Protein 6.5 g/dL (6.3-8.2)
[2022-07-12 03:13] LABS: INR 0.9 (<1.2); Partial Thromboplastin Time 25.7 sec (22.0-30.0); Prothrombin Time 9.6 sec (9.0-12.0)
[2022-07-12] MEDS ORDERED: KETOROLAC 15 MG/ML 1 ML VIAL IVP STA (06:08)
--- NOTE | 2022-07-12 06:24 | ED ---
Chest Pain HPI - General Chief Complaint: Chest Pain Stated Complaint: Chest pain, LT arm pain Time Seen by Provider: 07/12/22 05:57 Source: patient, family, RN notes reviewed Mode of arrival: wheelchair - History of Present Illness Initial Comments: This is a 36-year-old female who presents to the emergency department for left- sided chest pain and left-sided arm pain. She would describe the pain as being sharp and heavy. States that the pain is worse when she takes a deep breath and it radiates into the back. While the breathing worsens the pain, she is not having any shortness of breath. Denies any history of similar symptoms in the past. She has no personal history of cardiac problems, however she states that her mother had a heart attack when she was 58. She does not believe that any family members had any cardiac events younger than this. Denies any nausea, vomiting, dizziness, or lightheadedness. Denies any fevers, chills, sore throat, cough, dyspnea, palpitations, abdominal pain, nausea, vomiting, diarrhea, back pain, or headaches. MD Complaint: chest pain Pain Location: left chest Pain Radiation: LUE Quality: heaviness, sharp - Related Data Home Medications Medication Instructions Recorded Confirmed Ergocalciferol [Vitamin D2 (1250 50,000 unit PO MO 03/31/21 01/18/22 Mcg = 36698 Iu)] Venlafaxine HCl [Effexor] 50 mg PO DAILY 05/24/21 01/18/22 Vitamin C/Biotin [Hair, Skin and 1 tab PO DAILY 11/11/21 01/18/22 Nails Chew] Previous Rx's Medication Instructions Recorded Omeprazole [PriLOSEC] 40 mg PO DAILY #30 cap 11/16/21 Albuterol Sulfate [Albuterol 1 puff PO Q4-6H PRN #8.5 gm 07/12/22 Sulfate Hfa] Azithromycin [Zithromax] 250 mg PO DAILY 4 Days #4 tab 07/12/22 Promethazine/Dextromethorphan 5 ml PO Q4-6H PRN #473 ml 07/12/22 [Promethazine-Dm Syrup] predniSONE 50 mg PO DAILY 5 Days #5 tab 07/12/22 Allergies Allergy/AdvReac Type Severity Reaction Status Date / Time Penicillins Allergy Rash/Hives Verified 07/12/22 01:12 Sulfa (Sulfonamide Allergy Rash/Hives Verified 07/12/22 01:12 Antibiotics) topiramate [From Topamax] AdvReac Nausea Verified 07/12/22 01:12 Review of Systems ROS Statement: Those systems with pertinent positive or pertinent negative responses have been documented in the HPI. ROS Other: All systems not noted in ROS Statement are negative. Past Medical History Past Medical History: Hypertension Additional Past Medical History / Comment(s): ., migraines, BARIATRIC EVAL. NOT TAKING MEDS FOR HTN AT THIS TIME History of Any Multi-Drug Resistant Organisms: None Reported Past Surgical History: Bariatric Surgery, Section, Cholecystectomy, Hernia Repair, Tubal Ligation Additional Past Surgical History / Comment(s): EGD, COLONOSCOPY. sleeve gastrectomy 11-14-21 Past Anesthesia/Blood Transfusion Reactions: No Reported Reaction Past Psychological History: Anxiety, Depression Smoking Status: Former smoker Past Alcohol Use History: None Reported Past Drug Use History: None Reported - Past Family History Mother Family Medical History: Diabetes Mellitus General Exam General appearance: alert, in no apparent distress Head exam: Present: atraumatic, normocephalic, normal inspection Respiratory exam: Present: normal lung sounds bilaterally, chest wall tenderne ss. Absent: respiratory distress, wheezes, rales, rhonchi, stridor Cardiovascular Exam: Present: regular rate, normal rhythm, normal heart sounds. Absent: systolic murmur, diastolic murmur, rubs, gallop, clicks Neurological exam: Present: alert, oriented X3, CN II-XII intact Psychiatric exam: Present: normal affect, normal mood Skin exam: Present: warm, dry, intact, normal color. Absent: rash Course Vital Signs 07/12/22 07/12/22 07/12/22 01:10 05:35 08:12 Temperature 98.2 F 98.1 F Pulse Rate 120 H 80 76 Respiratory 18 16 18 Rate Blood Pressure 137/83 121/89 122/82 O2 Sat by Pulse 99 96 94 L Oximetry 07/12/22 07/12/22 07/12/22 08:30 08:45 09:00 Temperature 98.3 F Pulse Rate 80 80 82 Respiratory 18 Rate Blood Pressure 117/69 O2 Sat by Pulse 95 Oximetry Chest Pain MDM - MDM This is a 36-year-old female who presents to the emergency department for chest pain. Was pt. sent in by a medical professional or institution? @ -No Did you speak to anyone other than the patient for history? @ -No Did you review nursing and triage notes? @ -Agree, accurate with regards to the patient's symptoms. Were old charts reviewed? @ -No Differential Diagnosis? @ -Differential Chest Pain: Stable Angina, Unstable Angina, STEMI, NSTEMI Aortic Dissection, Pneumothorax, Musculoskeletal, Esophageal Spasm GERD, Cholecystitis, Pancreatitis, Zoster, this is not meant to be an all-inclusive list. X-rays interpreted by me (1pt min.)? @ -My interpretation of the chest x-ray identifies a density in the left lower lobe. CT interpreted by me (1pt min.)? @ -CT angiogram of the chest does not identify any signs of a pulmonary embolus, however it does again reveal the left lower lobe infiltrate as well as a pleural effusion. What testing was considered but not performed? (CT, X-rays, U/S, labs)? Why? @ None What meds were considered but not given? Why? @ -None Did you discuss the management of the patient with other professionals? @ -No Did you reconcile home meds? @ -Yes Was smoking cessation discussed for >3mins.? @ -No Was critical care preformed (if so, how long)? @ -No Were there social determinants of health that impacted care today? How? (Homelessness, low income, unemployed, alcoholism, drug addiction, transportation, low edu. Level, literacy, decrease access to med. care, senior living, rehab)? @ -No Was there de-escalation of care discussed even if they declined? (Discuss DNR or withdrawal of care, Hospice)? @ -No What co-morbidities impacted this encounter? (DM, HTN, Smoking, COPD, CAD, Cancer, CVA, Hep., AIDS, mental health diagnosis, sleep apnea, morbid obesity)? @ -Morbid obesity, hypertension. Was patient admitted / discharged? @ -Lab work obtained revealing leukocytosis and a mildly elevated d-dimer. Chest x-ray and CTA of the chest obtained with my interpretation listed above. Findings are consistent with a pneumonia. She was given a dose of Decadron and a DuoNeb breathing treatment in the emergency department, which she states was helpful. Additionally, she was given a dose of toradol, ceftriaxone, and azithromycin. Patient for azithromycin, prednisone, albuterol inhaler, and promethazine DM cough syrup provided with dosing instructions reviewed. Drug Therapy requiring intensive monitoring for toxicity (Heparin, Nitro, Insulin, Cardizem)? @ -None Were any procedures done? @ -None Diagnosis/symptom? @ -Pneumonia Acute, or Chronic, or Acute on Chronic? @ -Acute Uncomplicated (without systemic symptoms) or Complicated (systemic symptoms)? @ -Complicated, experiencing chest pain and shortness of breath. Side effects of treatment? @ -Adverse effects to the prescribed medication. Exacerbation, Progression, or Severe Exacerbation] @ -Not applicable Poses a threat to life or bodily function? @ -Yes, may impact or bodily function based on her level of chest pain or shortness of breath. Return precautions reviewed in depth, the patient is instructed to return to the emergency department with any new, worsening, or concerning symptoms. Patient verbalized understanding. This case was discussed in detail with the attending ED physician. Presentation, findings, and treatment plan discussed in detail as well. Disposition Clinical Impression: Pneumonia Disposition: HOME SELF-CARE Instructions (If sedation given, give patient instructions): Pneumonia (ED) Additional Instructions: Return to the emergency department with any new, worsening, or concerning symptoms. Take the antibiotic as prescribed for an additional 4 days. You will take the first dose starting tomorrow, as you already received a dose here. Take the steroids daily for 5 days. The cough medication and inhaler can be used every 4-6 hours as needed for coughing and shortness of breath. The cough medication can be sedating and you should take this at night until you know how it affects you. Follow up with your primary care provider in 1-2 days. Prescriptions: Albuterol Sulfate [Albuterol Sulfate Hfa] 1 puff PO Q4-6H PRN #8.5 gm PRN Reason: Shortness Of Breath predniSONE 50 mg PO DAILY 5 Days #5 tab Promethazine/Dextromethorphan [Promethazine-Dm Syrup] 5 ml PO Q4-6H PRN #473 ml PRN Reason: Cough Azithromycin [Zithromax] 250 mg PO DAILY 4 Days #4 tab Is patient prescribed a controlled substance at d/c from ED?: No Referrals: Gianluca Morris MD [Primary Care Provider] - 1-2 days
--- NOTE | 2022-07-12 06:56 | CT ---
EXAMINATION TYPE: CT chest angio for PE DATE OF EXAM: 07/12/2022 COMPARISON: 12/21/2014 HISTORY: SOB CT DLP: 600.3 mGycm Automated exposure control for dose reduction was used. CONTRAST: Performed with IV Contrast, patient injected with 100 mL of Isovue 370. There are Three-D postprocessed images. The lungs are clear of consolidation. There is some mild linear infiltrate and atelectasis left lower lobe. There is left pleural effusion. There is gastric bariatric surgery. Heart size is normal. No p ericardial effusion. There is no mediastinal adenopathy. Thoracic aorta is intact. No aneurysm. There is normal contrast opacification of the pulmonary arteries. No filling defect. The thoracic spine is intact. The sternum is intact. The upper abdominal soft tissues are intact. The re are clips from cholecystectomy. IMPRESSION: No evidence of pulmonary embolism. There is some left lower lobe infiltrate and atelectasis and left pleural effusion. Lung abnormality appears new compared to old exam.
[2022-07-12] MEDS ORDERED: IPRATROPIUM-ALBUTEROL 3 ML NEB INHALATION STA (07:23)
[2022-07-12] MEDS ORDERED: AZITHROMYCIN 500 MG in SODIUM CHLORIDE 0.9% 250 ML IVPB STA (07:23)
[2022-07-12] MEDS ORDERED: cefTRIAXone IN SWFI 1,000 MG/10 ML SYRINGE IVP STA (07:23)
[2022-07-12 08:12] VITALS: RESP 18
[2022-07-12] MEDS ORDERED: DEXAMETHASONE SOD PHOSPHATE 10 MG/ML 1 ML VIAL IVP STA (08:29)
[2022-07-12 09:33] VITALS: BP 117/69; PULSE 82; TEMP 98.3
== END 2022-07-12 09:34 | disposition home or self-care (01) ==
LOC: EC 01:00
DX: J18.9 Pneumonia, unspecified organism (principal); I10 Essential (primary) hypertension; F41.9 Anxiety disorder, unspecified; F32.A Depression, unspecified; Z87.891 Personal history of nicotine dependence; Z88.2 Allergy status to sulfonamides; Z88.0 Allergy status to penicillin; Z88.8 Allergy status to other drugs, medicaments and biological substances; Z79.899 Other long term (current) drug therapy
CPT/HCPCS: 99285; 96365; 96375 ×3; 36415; 94640; 93005; 85379; 80053; 83735; 84484; 85025; 85610; 85730; 87040; 71046; 71275; J1100; J0456; J0696; J1885; Q9967

== ENCOUNTER → 2024-07-28 | Outpatient (CLI) | payer BC ==
[2024-07-28 20:57] LABS: Basophils # (A) 0.06 X 10*3/uL (0.00-0.10); Basophils % (A) 0.6 %; Eosinophils # (A) 0.25 X 10*3/uL (0.04-0.35); Eosinophils % (A) 2.5 %; HCT 39.5 % (37.2-46.3); HGB 12.8 g/dL (12.0-15.0); Lymphocytes # (A) 3.95 X 10*3/uL (0.90-5.00); Lymphocytes % (A) 39.6 %; MCH 28.5 pg (27.0-32.0); MCHC 32.4 g/dL (32.0-37.0); Mean Platelet Volume 11.2 FL (9.5-12.2); Monocytes # (A) 0.89 X 10*3/uL (0.20-1.00); Monocytes % (A) 8.9 %; NRBC Per 100 WBC 0 X 10*3/uL (0.00-0.01); Neutrophils % (A) 48.2 %; Platelet Count 259 X 10*3/uL (140-440); RBC 4.49 X 10*6/uL (4.10-5.20); RDW 12.9 % (11.5-14.5); WBC 9.97 X 10*3/uL (4.50-10.00)
== END | disposition home or self-care (01) ==
LOC: LABWHC1 14:42
PROVIDERS: ATTEND Obstetrics & Gynecology
DX: Z01.812 Encounter for preprocedural laboratory examination (principal); N92.0 Excessive and frequent menstruation with regular cycle
CPT/HCPCS: 36415; 85025

== ENCOUNTER 2024-08-04 09:14 | Day surgery (SDC) | payer BC ==
[2024-08-01 08:44] VITALS: BMI 35.6
--- NOTE | 2024-08-03 10:52 | P.HPOB ---
History of Present Illness H&P Date: 08/03/24 Chief Complaint: menorrhagia 38 year old with menorrhagia presents for D&C hysteroescopy and endometrial ablation with NovaSure. Review of Systems All systems: negative Constitutional: Denies chills, Denies fever Eyes: denies blurred vision, denies pain Ears, nose, mouth and throat: Denies headache, Denies sore throat Cardiovascular: Denies chest pain, Denies shortness of breath Respiratory: Denies cough Gastrointestinal: Denies abdominal pain, Denies diarrhea, Denies nausea, Denies vomiting Genitourinary: Denies dysuria, Denies hematuria Musculoskeletal: Denies myalgias Integumentary: Denies pruritus, Denies rash Neurological: Denies numbness, Denies weakness Psychiatric: Denies anxiety, Denies depression Endocrine: Denies fatigue, Denies weight change Past Medical History Past Medical History: Hypertension Additional Past Medical History / Comment(s): ., migraines, BARIATRIC EVAL. NOT TAKING MEDS FOR HTN AT THIS TIME History of Any Multi-Drug Resistant Organisms: None Reported Past Surgical History: Bariatric Surgery, Section, Cholecystectomy, Hernia Repair, Tubal Ligation Additional Past Surgical History / Comment(s): EGD, COLONOSCOPY. sleeve gastrectomy 11-14-21 Past Anesthesia/Blood Transfusion Reactions: No Reported Reaction Additional Past Anesthesia/Blood Transfusion Reaction / Comment(s): no blood transfusion Smoking Status: Former smoker - Past Family History Mother Family Medical History: Diabetes Mellitus Medications and Allergies Home Medications Medication Instructions Recorded Confirmed Type Ergocalciferol [Vitamin D2 (1250 50,000 unit PO MO 03/31/21 08/01/24 History Mcg = 49037 Iu)] Ferrous Sulfate [Feosol] 325 mg PO DAILY 08/01/24 08/01/24 History Allergies Allergy/AdvReac Type Severity Reaction Status Date / Time Penicillins Allergy Rash/Hives Verified 08/01/24 08:37 Sulfa (Sulfonamide Allergy Rash/Hives Verified 08/01/24 08:37 Antibiotics) topiramate [From Topamax] AdvReac Nausea Verified 08/01/24 08:37 Exam Osteopathic Statement: *. No significant issues noted on an osteopathic structural exam other than those noted in the History and Physical/Consult. Heart: Regular rate and rhythm Lungs: Clear to auscultation bilaterally Abdomen: Soft, nontender Extremities: Negative Homans sign Assessment and Plan (1) Menorrhagia Status: Acute Code(s): N92.0 - EXCESSIVE AND FREQUENT MENSTRUATION WITH REGULAR CYCLE SNOMED Code(s): 846024877 Plan: D&C hysterscopy and endometrial ablation wt Gildardo.
[~2024-08-04 09:14] MED LIST changes: -LACTATED RINGERS 1,000 ML IV SCH; +LIDOCAINE 1% (10MG/ML) FOR IV START INTRADERMA PRN; +MIDAZOLAM 2 MG/2 ML VIAL IV PRN; +Pre Op ABX Message 1 EACH MISC MISCELLANE ONE; +fentaNYL (PF) 50 MCG/ML 2 ML AMP IVP PRN
[2024-08-04 09:48] VITALS: TEMP 98
[2024-08-04] MEDS: LACTATED RINGERS 1,000 ML IV SCH (10:03)
[2024-08-04] MEDS: DEXAMETHASONE SOD PHOSPHATE 4 MG/ML 1 ML VIAL IV ONE (10:03)
[2024-08-04] MEDS: ONDANSETRON 4 MG/2 ML VIAL IVP ONE (10:03)
[2024-08-04] MEDS: IV FLUID CONTINUATION 1,000 ML IV ONE (10:09)
[2024-08-04] MEDS ORDERED: LIDOCAINE 1% INJ 10MG/ML (20 ML MDV) ONE (10:25)
[2024-08-04] MEDS ORDERED: PROPOFOL 10 MG/ML 20 ML VIAL IV ONE (10:25)
[2024-08-04] MEDS ORDERED: fentaNYL (PF) 50 MCG/ML 2 ML AMP ONE (10:25)
--- NOTE | 2024-08-04 11:06 | P.OP ---
Date of Procedure: 08/04/24 Preoperative Diagnosis: 1. menorrhagia Postoperative Diagnosis: 1. menorrhagia Procedure(s) Performed: D&C hysteroscopy endometrial ablation with NovaSure Anesthesia: TOMMIE Surgeon: Lisbeth Mcqueen Estimated Blood Loss (ml): 2 IV fluids (ml): 500 Urine output (ml): 5 Pathology: other (endometrial currettings) Condition: stable Disposition: PACU Operative Findings: Uterus sounded to 10 cm. Cavity length 6.5 cm, width 3.3 cm, power 118 W and time of ablation 62 seconds. Adequate ablation after the NovaSure. Description of Procedure: Patient is taken the operating room where general anesthesia was obtained without difficulty. She was prepped and draped in normal sterile fashion dorsal lithotomy position, legs placed in the candy cane stirrups. Bladder was drained of all urine. Weighted speculum placed in the vagina and the anterior lip the cervix was grasped with serial tooth tenaculum. The uterus sounded to 10 cm and the cervix under 3.5 cm making the cavity length 6.5 cm. The cervix was dilated to #8 Hegar dilator. Hysteroscopy was then performed. Both ostia were visualized and there was a smooth contour of the uterus. Sharp curet was then gently used to obtain endometrial curettings. The NovaSure was introduced into the uterus with a cavity length of 6.5 cm, width 3.3 cm. after cavity assessment was passed, the time of ablation was 62 seconds at 118 W. Hysteroscopy was a gain performed and adequate ablation was noted. All instruments removed from the vagina. Patient tolerated the procedure well, sponge and instrument counts were correct x2 and she was taken to recovery in stable condition.
[2024-08-04] MEDS: HYDROmorphone 0.5 MG/0.5 ML SYRINGE IVP PRN (11:37)
[2024-08-04 12:15] VITALS: RESP 16
[2024-08-04 12:27] VITALS: BP 111/74; PULSE 66
== END 2024-08-04 12:54 | disposition home or self-care (01) ==
LOC: OR 09:14
PROVIDERS: ATTEND Obstetrics & Gynecology
DX: N92.0 Excessive and frequent menstruation with regular cycle (principal); I10 Essential (primary) hypertension; Z87.891 Personal history of nicotine dependence; Z98.51 Tubal ligation status; Z98.890 Other specified postprocedural states; Z90.49 Acquired absence of other specified parts of digestive tract; Z83.3 Family history of diabetes mellitus; Z88.0 Allergy status to penicillin; Z88.2 Allergy status to sulfonamides; Z88.1 Allergy status to other antibiotic agents
CPT/HCPCS: 81025; 58563; J1100; J2405; J2003; J3010; J2704; J1171; 88305